=== PATIENT | male | born 1980 | race Two or more races ===

== ENCOUNTER 2021-01-08 15:25 | Emergency (ER) | payer SELFPAY ==
[~2021-01-08] VITALS: Ht 160 cm; Wt 72.0 kg
[2021-01-08 16:10] VITALS: BP 141/81
--- NOTE | 2021-01-08 16:39 | PHYS DOC ---
Past Medical History Past Medical History: No Pertinent History Past Surgical History: Other Additional Past Surgical Histo: JAW AND EAR plastic surgery Smoking Status: Current Every Day Smoker Alcohol Use: Occasionally Drug Use: None General Adult EDM: Chief Complaint: FOREIGN BODY/EYES HPI: HPI: Patient is a 40 year old male presents emergency department chief complaint of something is stuck in his right arm. 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 Patient states he was wearing eye protection however he believes the foreign object entered through an angle that the eye protection did not cover. Patient states he immediately irrigated his eyes with the Divergence eye rinse kit that was onsite. Patient denies any pain however states he does feel there is something in his eye when he blinks his eye. Patient denies any visual changes, denies any eye pain, photophobia, or vision loss. Patient reports his last tetanus immunization was less than 1 year ago. Patient denies any health history, denies allergies to medications, states he does not take any prescription medications at home. Patient denies any other physical complaints or physical concerns. Patient denies any other physical injuries. Review of Systems: Review of Systems: 14 body systems of review of systems have been reviewed. See HPI for pertinent positives and negative responses, otherwise all other systems are negative, nonpertinent or noncontributory. Heart Score: C/O Chest Pain: No Risk Factors: Risk Factors: DM, Current or recent (<one month) smoker, HTN, HLP, family history of CAD, obesity. Risk Scores: Score 0 - 3: 2.5% MACE over next 6 weeks - Discharge Home Score 4 - 6: 20.3% MACE over next 6 weeks - Admit for Clinical Observation Score 7 - 10: 72.7% MACE over next 6 weeks - Early Invasive Strategies Allergies: Allergies: Allergies Coded Allergies Type Severity Reaction Last Updated Verified No Known Drug Allergies 02/22/15 No Physical Exam: PE: Constitutional: Well developed, well nourished, no acute distress, non-toxic appearance. 40-year-old male in no apparent distress. HENT: Normocephalic, atraumatic. Eyes: Conjunctiva normal, no discharge. Normal eye exam of the left eye, satisfactory 6 cardinal eye movements bilaterally, pupils 4 mm. Right eye exam: Visible foreign body at 4 o'clock position without aid of ophthalmic specific tools. Tetracaine instilled to right eye, foreign body removed easily with moistened cotton swab with aid of Eng lamp magnifier glass, flurocene instilled, Eng lamp examination revealed corneal abrasion at 4 o'clock position, no foreign body remains. Positive red light reflex, visual acuity after examination right eye 2019, left eye 20/15, both eyes 2012. No vitreous humor drainage appreciated, no hyphema, no scleral edema, no subconjunctival hemorrhage, no conjunctival erythema of right or left eye appreciated. Neck: Normal range of motion, no stridor. Cardiovascular: No cyanosis appreciated, distal cap refill less than 2 seconds. Lungs & Thorax: Patient is in no respiratory distress, no audible adventitious lung sounds appreciated. Abdomen: Nontender, no abnormalities noted. Skin: Warm, dry, no erythema, no rash. [] Back: No tenderness, no deformities. Extremities: No tenderness, no cyanosis, no clubbing, ROM intact, no edema. [] Neurologic: Alert and oriented X 3, normal motor function, normal sensory function, no focal deficits noted. Psychologic: Affect normal, judgement normal, mood normal. Current Patient Data: Vital Signs: Vital Signs Date Time Temp Pulse Resp B/P (MAP) Pulse Ox O2 Delivery O2 Flow Rate FiO2 01/08/21 16:10 98.4 68 16 141/81 (98) 99 Room Air 98.4 EKG: EKG: [] Radiology/Procedures: Radiology/Procedures: [] Course & Med Decision Making: Course & Med Decision Making Pertinent Labs and Imaging studies reviewed. (See chart for details) 40-year-old male, vital signs reviewed, presents emergency department complaint of something entering his eye while he was grinding materials at work. Physical presentation examination consistent with patient's description of events, Eng lamp examination revealed foreign body, foreign body was removed with moistened cotton swab, a fluorescein eye exam revealed a corneal abrasion at the 4 o'clock position, there was no other eye trauma or infectious process appr eciated. Patient was started on erythromycin eye ointment one half ribbon, a prescription for erythromycin 0.5% ointment and ketorolac ophthalmic eyedrops for pain were prescribed and sent to the patient's pharmacy of choice. Gave patient strict follow-up instructions to follow-up with [facility], recommended the [facility] with Dr. Schulz located at the [facility], patient gave verbal understanding of discharge home instructions, states he will make appointment tomorrow morning for eye exam with ophthalmology, patient reports he has had a foreign body removed and had similar treatment in the past and is aware how to use medications, patient gave verbal understanding of strict return to the emerg ency department precautions or concerns patient had no further questions or concerns, patient remained hemodynamically stable, in no apparent distress, nontoxic in appearance at discharge, patient was discharged home without incident. Dragon Disclaimer: Dragon Disclaimer: This electronic medical record was generated, in whole or in part, using a voice recognition dictation system. Departure Departure Impression: Primary Impression: Corneal abrasion Qualified Codes: S05.01XA - Injury of conjunctiva and corneal abrasion without foreign body, right eye, initial encounter Additional Impression: Corneal foreign body Qualified Codes: T15.01XA - Foreign body in cornea, right eye, initial encounter Disposition: HOME / SELF CARE / HOMELESS Condition: GOOD Referrals: NO PCP (PCP) Patient Instructions: Eye - Corneal Abrasion, Eye - Corneal Foreign Body Additional Instructions: You were seen today in the emergency department after something entered your right eye while you are grinding materials at work. There was a small piece of material/foreign body that remained in your eye after you had irrigated with eye wash at work, this was at the 4 o'clock position of your right eye cornea outer edge. You were treated today with eye numbing medication drops, fluorescence stain to better visualize the foreign body, it was removed with a cotton swab, then irrigated and reexamined, there was no longer any foreign body however a corneal abrasion remained. I am starting you on a antibiotic eye ointment that you will place in your right lower eyelid 4 times a day for the next 5 days. I am also prescribing you a pain medication drops for your eye that you will place in your right eye 4 times a day as needed for pain. I recommend that you follow-up this week with a eye doctor, you may see Dr. Schulz at the [facility] office located at [address] [place] [address] [place] [address]. Their telephone number is area code [phone]. Please call tomorrow morning for an appointment to be seen this week. Do not place an eye patch over your right eye during treatment of your corneal abrasion. Please r eturn immediately to the emergency department for sudden loss of vision, increased eye pain, loss of eye movement, or other concerns. It was a pleasure taking care of you today in the emergency department and I think you for allowing me to participate in your emergency health care needs. EMERGENCY DEPARTMENT GENERAL DISCHARGE INSTRUCTIONS Thank you for coming to [facility] Emergency Department (ED) today and trusting us with you care. We trust that you had a positive experience in our Emergency Department. If you wish to speak to the department management, you may call the Director at [phone]. YOUR FOLLOW UP INSTRUCTIONS ARE FOLLOWS: 1. Do you have a private Doctor? If you do not have a private doctor, please ask for a resource list of physicians or clinics that may be able to assist you with follow up care. 2. The Emergency Physicain has interpreted your x-rays. The X-Ray specialist will also review them. If there is a change in the findings, you will be notified in 48 hours when at all possible. 3. A lab test or culture has been done, your results will be reviewed and you will be notified if you need a change in treatment. ADDITIONAL INSTRUCTIONS AND INFORMATION: 1. Your care today has been supervised by a physician who is specially trained in emergency care. Many problems require more than one evaluation for a complete diagnosis and treatment. We recommend that you schedule your follow up appointment as recommended to ensure complete treatment of you illness or injury. If you are unable to obtain follow up care and continue to have a problem, or if your condition worsens, we recommend that you return to the ED. 2. We are not able to safely determine your condition over the phone nor are we able to give sound medical advice over the phone. For these safety reasons, if you call for medical advice we will ask you to come to the ED for further evaluation. 3. If you have any questions regarding these discharge instructions please call the ED at [phone]. SAFETY INFORMATION: In the interest of safety, wellness, and injury prevention; we encourage you to wear your sealbelt, if you smoke; quite smoking, and we encourage family to use a protective helmet for bicycling and other sporting events that present an increased risk for head injury. IF YOUR SYMPTOMS WORSEN OR NEW SYMPTOMS DEVELOP, OR YOU HAVE CONCERNS ABOUT YOUR CONDITION; OR IF YOUR CONDITION WORSENS WHILE YOU ARE WAITING FOR YOUR FOLLOW UP APPOINTMENT; EITHER CONTACT YOUR PRIMARY CARE DOCTOR, THE PHYSICIAN WHOSE NAME AND NUMBER YOU WERE GIVEN, OR RETURN TO THE ED IMMEDIATELY. Scripts Ketorolac Tromethamine (KETOROLAC TROMETHAMINE) 5 Ml Drops 1 DROP RIGHTEYE QID for eye pain, #5 ML 0 Refills Prov: HARLAN TIPTON APRN 01/08/21 Erythromycin Base (Erythromycin) 1 Gm Oint...g. 1 GM OP QID for corneal abrasion, #1 MISC 0 Refills Apply 0.25 inch ribbon to right lower inner eyelid 4 times a day for the next 5 days. Prov: HARLAN TIPTON APRN 01/08/21 HARLAN TIPTON APRN Jan 08, 2021 16:38
[2021-01-08] MEDS ORDERED: ERYTHROMYCIN 0.5% OPHTH OINTMENT 1GM TUBE. OD ONE (17:00)
[2021-01-08] MEDS ORDERED: FLUORESCEIN OPHTH TEST STRIP. OD ONE (17:00)
[2021-01-08] MEDS ORDERED: EYE-STREAM OPHTH SOLUTION 120 ML BOTTLE. OD ONE (17:00)
[2021-01-08] MEDS ORDERED: TETRACAINE 0.5% OPHTH SOLUTION 4ML BOTTLE. OD ONE (17:00)
[2021-01-08] MEDS ORDERED: KETO5DRO24 RIGHTEYE (17:29)
[2021-01-08] MEDS ORDERED: ERYT1OIN6 OP (17:29)
== END 2021-01-08 17:30 | disposition home or self-care (01) ==
LOC: ER 15:25
DX: T15.01XA Foreign body in cornea, right eye, initial encounter (principal); F17.200 Nicotine dependence, unspecified, uncomplicated; X58.XXXA Exposure to other specified factors, initial encounter; Y93.89 Activity, other specified; Y92.89 Other specified places as the place of occurrence of the external cause; Y99.8 Other external cause status
CPT/HCPCS: 99283